=== PATIENT | female | born 1945 | race Caucasian/White ===

== ENCOUNTER 2017-07-27 21:16 | Inpatient (IN) ==
[2017-07-27] MEDS ORDERED: 0.9 % Sodium Chloride 1,000 ML IVC ONE (21:25)
--- NOTE | 2017-07-27 21:28 | Emergency Department Note ---
Disposition Clinical Impression: Delirium due to general medical condition, Hypernatremia, Hyperchloremia Acute renal failure Qualifiers: Acute renal failure type: unspecified Qualified Code(s): N17.9 - Acute kidney failure, unspecified Disposition: Admitted As Inpatient Condition: Fair Referrals: NONE,PCP [Primary Care Provider] - Forms: ED Satisfaction Letter Altered Mental Status HPI - General Chief Complaint: ED Altered Mental Status Stated Complaint: altered mental status Time Seen by Provider: 07/27/17 21:22 Source: EMS, other (senior care) Mode of arrival: EMS Limitations: altered mental status Nursing Notes Reviewed: Yes Vital Signs Reviewed: Yes - History of Present Illness HPI Narrative: Patient is reported to have had decreased activity with. The confusion since Saturday, 6 days ago. She did have an episode of a blood sugar down to 49 on Saturday but subsequently has been doing well. Blood sugar was in the 200s prior to arrival today. She did have labs checked and was shown to have a leukocytosis. She has been placed on Levaquin but is unclear the source of infection that was being treated. Today she has been more confused and less responsive and has been brought in by EMS for evaluation. She is usually in the behavioral unit but able to ambulate and eat for herself. She is currently able to arise and looked about but is otherwise not following any specific command and certainly not being active. No history is obtainable from the patient and history from the [facility] is very limited. MD complaint: altered mental status, confusion, decreased responsiveness, weakness Onset (ago): day(s) (6) Timing confirmed by: caregiver Pain Severity: none Consistency of Symptoms: waxing and waning, getting worse Treatments prior to arrival: other (Levaquin) - Related Data Home Medications Medication Instructions Recorded Confirmed Aspirin [Lo-Dose Aspirin EC] 81 mg PO QAM 07/27/17 07/27/17 Benztropine Mesylate 0.5 mg PO BID 07/27/17 07/27/17 Insulin Glargine,Hum.rec.anlog 30 unit SQ QAM 07/27/17 07/27/17 [Basaglar Kwikpen U-100] Insulin Glargine,Hum.rec.anlog 34 unit SQ HS 07/27/17 07/27/17 [Basaglar Kwikpen U-100] Levofloxacin 500 MG/100 ML 500 mg IV QAM 07/27/17 07/27/17 [Levaquin Premix 500mg/100mL] clonazePAM [Clonazepam] 0.5 mg PO BID 07/27/17 07/27/17 clonazePAM [Klonopin] 1 mg PO HS 07/27/17 07/27/17 Allergies Allergy/AdvReac Type Severity Reaction Status Date / Time bee venom protein (honey bee) Allergy See Verified 07/27/17 21:51 Comments hydroxyzine Allergy See Verified 07/27/17 21:51 Comments meperidine Allergy See Verified 07/27/17 21:51 Comments propoxyphene Allergy See Verified 07/27/17 21:51 Comments ziprasidone Allergy See Verified 07/27/17 21:51 Comments All systems ED: reviewed and negative except as stated. Past Medical History - Past Medical History Medical history: Reports: arthritis, dementia, diabetes, thyroid disease, other (Parkinson's) Psychiatric history: Reports: anxiety, schizophrenia - Social History Smoking Status: Unknown if ever smoked Alcohol use: Reports: none Drug use: Reports: none Physical Exam - General Limitations: altered mental status General appearance: in no apparent distress, lethargic - Head Head exam: atraumatic, normocephalic, normal inspection - Eye Eye exam: Present: normal appearance, PERRL, EOMI. Absent: conjunctival injection - ENT ENT exam: normal exam, normal oropharynx, mucous membranes dry - Neck Neck exam: Present: normal inspection, full ROM, trachea midline. Absent: meningismus, lymphadenopathy - Chest Chest inspection: Present: normal inspection, symmetric chest wall rise - Respiratory Respiratory exam: Present: normal lung sounds bilaterally. Absent: respiratory distress, wheezes, prolonged expiratory phase - Cardiovascular Cardiovascular exam: Present: regular rate, normal rhythm, normal heart sounds - Abdominal Exam Abdominal exam: Present: soft, Non-Tender, normal bowel sounds. Absent: tenderness, distention, guarding, rebound, rigidity - Extremities Exam Extremities exam: Present: normal inspection, full ROM, normal capillary refill. Absent: tenderness, pedal edema - Expanded Lower Extremity Exam Neurovascular/Tendon exam: Present: normal capillary refill Gait: not tested/not observed - Neurological Exam Neurological exam: Absent: alert, oriented X3 - Psychiatric Psychiatric exam: Present: flat affect - Skin Skin exam: Present: warm, dry, intact, normal color. Absent: rash, diaphoresis , pallor Course Course Narrative: 2299: Care is discussed with Dr. Dawson. She will be continued on her Levaquin and hydration. She has acute renal insufficiency with dehydration with hypernatremia and hyperchloremia. He will reassess in the morning as to the need for other coverage or treatment. Verbal orders are obtained for her admission. Vital Signs Temperature 99.5 F 07/27/17 21:21 Pulse Rate 123 07/27/17 21:21 Respiratory Rate 27 07/27/17 21:21 Blood Pressure 149/81 07/27/17 21:21 O2 Sat by Pulse Oximetry 95 07/27/17 21:21 Temperature 99.5 F 07/27/17 21:21 Pulse Rate 111 07/27/17 22:47 Respiratory Rate 28 07/27/17 22:47 Blood Pressure 152/97 07/27/17 22:47 O2 Sat by Pulse Oximetry 96 07/27/17 22:47 Oxygen Delivery Oxygen Delivery Nasal Cannula Altered Mental Status - Differential Diagnosis Likely: altered mental status, delirium, hypoglycemia, hyponatremia, sepsis - Medical Records Medical records reviewed: Yes I reviewed the patient's medical records. - Lab Data Lab results reviewed: Yes I reviewed the patient's lab results. Result diagrams: 07/27/17 21:47 07/27/17 21:47 Lab Results 07/27/17 07/27/17 07/27/17 Range/Units 21:41 21:47 21:47 WBC 20.0 H (4.3-11.1) K/mcL RBC 5.49 H (3.82-4.97) M/mcL Hgb 16.3 H (11.5-15.4) g/dL Hct 52.8 H (35.3-44.9) % MCV 96.2 (83.0-100.0) fL MCH 29.7 (28.0-33.3) pg MCHC 30.9 L (31.6-35.5) g/dL RDW 14.7 H (11.5-14.5) % Plt Count 280 (140-400) K/mcL MPV 10.5 (9.4-12.4) fL Immature Gran % 0.6 (0-4) % Seg Neutrophils % 85.3 % Lymphocytes % 9.1 % Monocytes % 4.7 % Eosinophils % 0.1 % Basophils % 0.2 % Neutrophils # 17.1 H (1.6-8.9) K/mcL Lymphocytes # 1.8 (0.6-4.6) K/mcL Monocytes # 0.9 (0.0-1.3) K/mcL Eosinophils # 0.0 (0.0-0.6) K/mcL Basophils # 0.0 (0.0-0.2) K/mcL PT 16.2 H (9.4-12.1) Seconds INR 1.5 APTT 29.5 (26.0-36.0) Seconds Sodium (136-145) mEq/L Potassium (3.5-4.5) mEq/L Chloride (98-109) mEq/L Carbon Dioxide (19-29) mEq/L BUN (7-20) mg/dL Creatinine (0.57-1.11) mg/dL Est GFR ( Amer) (> 60) Est GFR (Non-Af Amer) (> 60) BUN/Creatinine Ratio (6-26) Glucose (70-99) mg/dL Calculated Osmolality (280-300) Lactic Acid (0.5-2.2) mmol/L Calcium (8.6-10.8) mg/dL Total Bilirubin (0.2-1.2) mg/dL Direct Bilirubin (0.0-0.5) mg/dL Indirect Bilirubin (0.0-1.2) mg/dL AST (5-34) Units/L ALT (0-55) Units/L Alkaline Phosphatase (38-126) Units/L Troponin I (0-0.03) ng/mL Serum Total Protein (6.0-8.3) g/dL Albumin (3.5-5.0) g/dL Globulin (2.4-3.5) g/dL Albumin/Globulin Ratio (1.1-2.2) Urine Color Dark Yellow (Yellow) Urine Clarity Cloudy A (Clear) Urine pH 5.5 (5.0-8.0) pH Units Ur Specific [place] 1.020 (1.010-1.025) Urine Protein 100 H (Neg-Trace) mg/dL Urine Glucose (UA) Normal (Normal) mg/dL Urine Ketones Trace H (Negative) mg/dL Urine Blood Negative (Negative) Urine Nitrite Negative (Negative) Urine Bilirubin Moderate H (Negative) Urine Urobilinogen Normal (Normal) mg/dL Ur Leukocyte Esterase Negative (Negative) Urine Microscopic RBC 3-5 H (0-3) per hpf Urine Microscopic WBC 0-3 (0-3) per hpf Ur Squamous Epith Cells Many H (None-Few) per lpf Urine Bacteria Many H (None-Few) per hpf Hyaline Casts Many H (None-Few) per lpf Urine Mucus Few (Few) Ur Culture Indicated? NO (NO) [place] (0.6-1.2) mEq/L 07/27/17 07/27/17 07/27/17 Range/Units 21:47 21:47 21:47 WBC (4.3-11.1) K/mcL RBC (3.82-4.97) M/mcL Hgb (11.5-15.4) g/dL Hct (35.3-44.9) % MCV (83.0-100.0) fL MCH (28.0-33.3) pg MCHC (31.6-35.5) g/dL RDW (11.5-14.5) % Plt Count (140-400) K/mcL MPV (9.4-12.4) fL Immature Gran % (0-4) % Seg Neutrophils % % Lymphocytes % % Monocytes % % Eosinophils % % Basophils % % Neutrophils # (1.6-8.9) K/mcL Lymphocytes # (0.6-4.6) K/mcL Monocytes # (0.0-1.3) K/mcL Eosinophils # (0.0-0.6) K/mcL Basophils # (0.0-0.2) K/mcL PT (9.4-12.1) Seconds INR APTT (26.0-36.0) Seconds Sodium 156 H (136-145) mEq/L Potassium 4.3 (3.5-4.5) mEq/L Chloride 120 H (98-109) mEq/L Carbon Dioxide 20 (19-29) mEq/L BUN 56 H D (7-20) mg/dL Creatinine 1.97 H D (0.57-1.11) mg/dL Est GFR ( Amer) 30 L (> 60) Est GFR (Non-Af Amer) 25 L (> 60) BUN/Creatinine Ratio 28 H (6-26) Glucose 395 H (70-99) mg/dL Calculated Osmolality 354 H (280-300) Lactic Acid 1.7 (0.5-2.2) mmol/L Calcium 10.5 (8.6-10.8) mg/dL Total Bilirubin 1.4 H (0.2-1.2) mg/dL Direct Bilirubin 0.5 (0.0-0.5) mg/dL Indirect Bilirubin 0.9 (0.0-1.2) mg/dL AST 25 (5-34) Units/L ALT 26 (0-55) Units/L Alkaline Phosphatase 107 (38-126) Units/L Troponin I 0.02 (0-0.03) ng/mL Serum Total Protein 8.3 (6.0-8.3) g/dL Albumin 3.8 (3.5-5.0) g/dL Globulin 4.5 H (2.4-3.5) g/dL Albumin/Globulin Ratio 0.8 L (1.1-2.2) Urine Color (Yellow) Urine Clarity (Clear) Urine pH (5.0-8.0) pH Units Ur Specific [place] (1.010-1.025) Urine Protein (Neg-Trace) mg/dL Urine Glucose (UA) (Normal) mg/dL Urine Ketones (Negative) mg/dL Urine Blood (Negative) Urine Nitrite (Negative) Urine Bilirubin (Negative) Urine Urobilinogen (Normal) mg/dL Ur Leukocyte Esterase (Negative) Urine Microscopic RBC (0-3) per hpf Urine Microscopic WBC (0-3) per hpf Ur Squamous Epith Cells (None-Few) per lpf Urine Bacteria (None-Few) per hpf Hyaline Casts (None-Few) per lpf Urine Mucus (Few) Ur Culture Indicated? (NO) [place] (0.6-1.2) mEq/L // Range/Units 22:10 WBC (4.3-11.1) K/mcL RBC (3.82-4.97) M/mcL Hgb (11.5-15.4) g/dL Hct (35.3-44.9) % MCV (83.0-100.0) fL MCH (28.0-33.3) pg MCHC (31.6-35.5) g/dL RDW (11.5-14.5) % Plt Count (140-400) K/mcL MPV (9.4-12.4) fL Immature Gran % (0-4) % Seg Neutrophils % % Lymphocytes % % Monocytes % % Eosinophils % % Basophils % % Neutrophils # (1.6-8.9) K/mcL Lymphocytes # (0.6-4.6) K/mcL Monocytes # (0.0-1.3) K/mcL Eosinophils # (0.0-0.6) K/mcL Basophils # (0.0-0.2) K/mcL PT (9.4-12.1) Seconds INR APTT (26.0-36.0) Seconds Sodium (136-145) mEq/L Potassium (3.5-4.5) mEq/L Chloride (98-109) mEq/L Carbon Dioxide (19-29) mEq/L BUN (7-20) mg/dL Creatinine (0.57-1.11) mg/dL Est GFR ( Amer) (> 60) Est GFR (Non-Af Amer) (> 60) BUN/Creatinine Ratio (6-26) Glucose (70-99) mg/dL Calculated Osmolality (280-300) Lactic Acid (0.5-2.2) mmol/L Calcium (8.6-10.8) mg/dL Total Bilirubin (0.2-1.2) mg/dL Direct Bilirubin (0.0-0.5) mg/dL Indirect Bilirubin (0.0-1.2) mg/dL AST (5-34) Units/L ALT (0-55) Units/L Alkaline Phosphatase (38-126) Units/L Troponin I (0-0.03) ng/mL Serum Total Protein (6.0-8.3) g/dL Albumin (3.5-5.0) g/dL Globulin (2.4-3.5) g/dL Albumin/Globulin Ratio (1.1-2.2) Urine Color (Yellow) Urine Clarity (Clear) Urine pH (5.0-8.0) pH Units Ur Specific [place] (1.010-1.025) Urine Protein (Neg-Trace) mg/dL Urine Glucose (UA) (Normal) mg/dL Urine Ketones (Negative) mg/dL Urine Blood (Negative) Urine Nitrite (Negative) Urine Bilirubin (Negative) Urine Urobilinogen (Normal) mg/dL Ur Leukocyte Esterase (Negative) Urine Microscopic RBC (0-3) per hpf Urine Microscopic WBC (0-3) per hpf Ur Squamous Epith Cells (None-Few) per lpf Urine Bacteria (None-Few) per hpf Hyaline Casts (None-Few) per lpf Urine Mucus (Few) Ur Culture Indicated? (NO) [place] 1.1 (0.6-1.2) mEq/L - Radiology Data Radiology results reviewed: Yes I reviewed the patient's radiology results. Single view chest x-ray is performed. This does not demonstrate evidence for infiltrate, effusion, pneumothorax, foreign body or heart failure. The cardiac silhouette is normal. I do not see abnormality to the osseous structures of the chest. This is on my interpretation. CT head is performed. This is reviewed on bone and soft tissue windows. There is no evidence for acute intracranial bleed, shift, mass or edema. Mastoids and sinuses appear normal. There is no fracture evident. This is on my interpretation. Impressions Chest X-Ray 07/27/17 21:25 IMPRESSION: No acute cardiopulmonary disease. D/ / Alf Rangel MD / Alf Rangel MD Interpreting Provider: Alf Rangel MD Head CT 07/27/17 21:25 IMPRESSION: No acute intracranial abnormality. D/ / Alf Rangel MD / Alf Rangel MD Interpreting Provider: Alf Rangel MD - EKG Data EKG attestation: Yes I reviewed and interpreted this EKG. EKG shows normal: sinus rhythm, axis, intervals, QRS complexes, ST-T waves Rate: tachycardia Interpretation: no acute changes, nonspecific ST-T wave changes TPA Checklist - LKW: 3-4.5 hrs Add. Warnings/Precautions Patient/family understanding: The patient/family members have been counseled and understood the risk, benefit , and alternatives of treatment. Critical Care Time Critical Care Time: Yes Total Critical Care Time: 60 Attestation: As this patient did present with signs and symptoms of potential life- threatening illness requiring my urgent intervention, total critical care time in this patient's care has been 60 minutes, not withstanding separately reportable procedures.
[2017-07-27 21:42] LABS: Bilirubin,Urine Moderate (Negative); Blood,Urine Negative (Negative); Clarity,Urine Cloudy (Clear); Color,Urine Dark Yellow (Yellow); Glucose,Urine (UA) Normal (Normal); Ketones,Urine Trace mg/dL (Negative); Leukocyte Esterase,Urine Negative (Negative); Nitrite,Urine Negative (Negative); PH,Urine 5.5 pH Units (5.0-8.0); Protein,Urine 100 mg/dL (Neg-Trace); Urobilinogen,Urine Normal (Normal)
[2017-07-27 21:50] LABS: Bacteria,Urine Many per hpf (None-Few); Hyaline Casts,Urine Many per lpf (None-Few); Squamous Epithelial Cell,Urine Many per lpf (None-Few)
[2017-07-27 21:54] LABS: Basophils % 0.2 %; Eosinophils % 0.1 %; Hematocrit 52.8 % (35.3-44.9); Hemoglobin 16.3 g/dL (11.5-15.4); Immature Granulocytes % 0.6 % (0-4); Lymphocytes # 1.8 K/mcL (0.6-4.6); Lymphocytes % 9.1 %; Mean Corpuscular HGB Conc 30.9 g/dL (31.6-35.5); Mean Corpuscular Hemoglobin 29.7 pg (28.0-33.3); Mean Corpuscular Volume 96.2 fL (83.0-100.0); Mean Platelet Volume 10.5 fL (9.4-12.4); Monocytes # 0.9 K/mcL (0.0-1.3); Monocytes % 4.7 %; Platelet Count 280 K/mcL (140-400); Red Blood Count 5.49 M/mcL (3.82-4.97); Red Cell Distribution Width 14.7 % (11.5-14.5); Segmented Neutrophils % 85.3 %
[2017-07-27 21:57] LABS: Neutrophils # 17.1 K/mcL (1.6-8.9)
[2017-07-27 21:59] LABS: INR 1.5; Prothrombin Time 16.2 Seconds (9.4-12.1)
[2017-07-27 22:02] LABS: Activated Partial Thrombo Time 29.5 Seconds (26.0-36.0)
[2017-07-27 22:11] LABS: WBC,Urine 0-3 per hpf (0-3)
[2017-07-27 22:13] LABS: Albumin 3.8 g/dL (3.5-5.0); Albumin/Globulin Ratio 0.8 (1.1-2.2); Bilirubin,Direct 0.5 mg/dL (0.0-0.5); Bilirubin,Indirect 0.9 mg/dL (0.0-1.2); Bilirubin,Total 1.4 mg/dL (0.2-1.2); Calcium 10.5 mg/dL (8.6-10.8); Globulin 4.5 g/dL (2.4-3.5); Potassium 4.3 mEq/L (3.5-4.5); Total Protein 8.3 g/dL (6.0-8.3)
[2017-07-27 22:13] LABS: Mucus,Urine Few (Few)
[2017-07-27] MEDS ORDERED: 0.9 % Sodium Chloride 1,000 ML IVC SCH (23:30)
[2017-07-28] MEDS ORDERED: D5% in Water 1,000 ML IVC PRN (00:26)
[2017-07-28] MEDS ORDERED: *HR* Dextrose 50 % in Water (Syg) 50 ML SYRINGE IVP PRN (00:26)
[2017-07-28] MEDS ORDERED: Ondansetron 4 MG/2 ML VIAL IVP PRN (00:26)
[2017-07-28] MEDS ORDERED: Albuterol 2.5 MG/3 ML NEBULIZER IH PRN (00:26)
[2017-07-28] MEDS ORDERED: Dextrose Gel 15 GM PO PRN ×2 (00:26)
[2017-07-28] MEDS ORDERED: Naloxone 0.4 MG/ML INJ IVP PRN (00:26)
[2017-07-28] MEDS: 0.9 % Sodium Chloride 1,000 ML IVC SCH ×2 (01:06→10:15)
[2017-07-28] MEDS: Ipratropium/Albuterol Neb 3 ML IH SCH ×2 (04:25→10:35)
[2017-07-28 05:23] LABS: Calcium 9.3 mg/dL (8.6-10.8); Potassium 4.2 mEq/L (3.5-4.5)
[2017-07-28] MEDS: *HR* Enoxaparin 40 MG/0.4 ML SYRINGE SQ SCH (06:10)
[2017-07-28] MEDS ORDERED: NON-FORMULARY MEDICATION 1 EACH EACH (Insulin Glargine,Hum.Rec.Anlog [Basaglar Kwikpen U-1 SQ SCH ×2 (09:00→21:00)
[2017-07-28] MEDS ORDERED: Azithromycin 500 MG in D5% in Water 250 ML IVPB ONE (13:04)
--- NOTE | 2017-07-28 13:09 | Internal Med History&Physical ---
Date of Encounter: 07/28/17 Time of Encounter: 12:30 Assessment and Plan (1) Acute renal failure Current visit: Yes Status: Acute Suspect due to dehydration from decreased oral intake, Lasix use, and possible contribution from lithium use. We will hold lithium and Lasix and give IV fluids. Recheck labs in a.m. Qualifiers: Acute renal failure type: unspecified Qualified Code(s): N17.9 - Acute kidney failure, unspecified (2) Neutrophilic leukocytosis Current visit: Yes Status: Acute She was on Levaquin for several days at the senior living prior to hospitalization. The etiology is not obvious but will give Rocephin and Zithromax today and recheck labs in a.m. (3) DM type 2 (diabetes mellitus, type 2) Current visit: Yes Status: Acute GOOD globin A1c was 7.4% on 07/15/2017. Continue Levemir, glimepiride, and do Accu-Cheks with SSI. Qualifiers: Diabetes mellitus complication status: with unspecified complications Diabetes mellitus jail insulin use: with watermaster use Qualified Code(s) : E11.8 - Type 2 diabetes mellitus with unspecified complications; Z79.4 - senior living (current) use of insulin; Z79.4 - senior living (current) use of insulin; Z79.4 - watermaster (current) use of insulin; Z79.4 - watermaster (current) use of insulin (4) Hypernatremia Current visit: Yes Status: Acute Suspect secondary to dehydration. Will recheck labs in a.m. Internal Medicine - H&P: HPI Chief complaint: Lethargy and confusion Admitted From: Emergency Dept Plans for Post Hospital Care: Home History of present illness: Ms. Lora is a 71 year old female who was brought to emergency room after staff reported she had decreasing oral intake with lethargy and confusion over the preceding days. She was evaluated and found to have hypernatremia and acute renal insufficiency with likely hemoconcentration. There was leukocytosis with left shift. She was admitted to [facility] floor for ongoing care needs. She could not supply any additional history. Past Med Surg Social Fam HX - Past Medical History Medical history: arthritis, cardiomyopathy, CHF, dementia, diabetes, thyroid disease, other Psychiatric history: anxiety, schizophrenia - Social History Smoking Status: Unknown if ever smoked Alcohol use: none Drug use: none Internal Medicine - H&P: Meds Albuterol Sulfate [Proventil Hfa] 2 puff IH Q6H PRN 07/27/17 [History] Aspirin [Lo-Dose Aspirin EC] 81 mg PO QAM 07/27/17 [History] Benztropine Mesylate 0.5 mg PO BID 07/27/17 [History] Benztropine [Cogentin] 0.5 mg PO BID 07/27/17 [History] Cholecalciferol (Vitamin D3) [Vitamin D] 50,000 unit PO DAILY 07/27/17 [History] Docusate [Colace] 100 mg PO BID 07/27/17 [History] Furosemide [Lasix] 40 mg PO DAILY 07/27/17 [History] Glimepiride [Amaryl] 4 mg PO DAILY 07/27/17 [History] Insulin Glargine,Hum.rec.anlog [Basaglar Kwikpen U-100] 30 unit SQ QAM 07/27/17 [History] Insulin Glargine,Hum.rec.anlog [Basaglar Kwikpen U-100] 34 unit SQ HS 07/27/17 [ History] Insulin LISPRO [HumaLOG] 0 units SQ HS 07/27/17 [History] Insulin LISPRO [HumaLOG] 0 units SQ TIDWM 07/27/17 [History] Levofloxacin 500 MG/100 ML [Levaquin Premix 500mg/100mL] 500 mg IV QAM 07/27/17 [History] Levothyroxine 1 tab PO QAM 07/27/17 [History] [place] Carbonate 450 mg PO BID 07/27/17 [History] Losartan [Cozaar] 12.5 mg PO DAILY 07/27/17 [History] Melatonin 10 mg PO HS 07/27/17 [History] OLANZapine [Zyprexa] 10 mg PO BID 07/27/17 [History] Ondansetron HCl [Zofran] 4 mg PO BID PRN 07/27/17 [History] Potassium Chloride [K-Tab ER] 20 meq PO QAM 07/27/17 [History] Pravastatin Sodium [Pravachol] 20 mg PO HS 07/27/17 [History] Rivastigmine 1 each TD QAM 07/27/17 [History] Sertraline [Zoloft] 50 mg PO DAILY 07/27/17 [History] Zolpidem [Ambien] 5 mg PO HS 07/27/17 [History] clonazePAM [Clonazepam] 0.5 mg PO BID 07/27/17 [History] clonazePAM [Klonopin] 1 mg PO HS 07/27/17 [History] metFORMIN [Glucophage] 500 mg PO BIDWM 07/27/17 [History] traZODone [TraZODone] 50 mg PO HS PRN 07/27/17 [History] 3 Allergy/AdvReac Type Severity Reaction Status Date / Time Penicillins Allergy Unknown Unresponsiv Verified 07/28/17 06:42 e bee venom protein (honey bee) Allergy See Verified 07/27/17 21:51 Comments hydroxyzine Allergy See Verified 07/27/17 21:51 Comments meperidine Allergy See Verified 07/27/17 21:51 Comments propoxyphene Allergy See Verified 07/27/17 21:51 Comments ziprasidone Allergy See Verified 07/27/17 21:51 Comments All Systems PM: A 10-system review of systems was performed and is negative for pertinent findings except as documented above in the HPI. Review of systems: Review of systems is obtained from the patient's son since the patient is nonverbal. Gen.: The son estimates her weight has decreased approximately 15 pounds in the past month Cardiovascular: She has history of CHF but no known hypertension IN DVT or pulmonary embolus Respiratory: She smoked from approximately age [age] up to 1 pack per day. She has been diagnosed with emphysema but does not wear oxygen at the senior living GI: She has had cholecystectomy. There is no known disorder of liver or exocrine pancreas : No previous known hematuria dysuria or kidney stones Neurologic: She has been diagnosed with dementia. There is no history of large distribution strokes or seizures. Endocrine: She was diagnosed with DM 2 approximately 2006. She has hyperlipidemia. She had normal TSH on 08/26/2016. Her son reports she has history of possible "thyroid problems" but he does not know details Hematology/oncology: She had skin cancer removed from her nose in the past. There is no history of internal malignancies anemia or other blood disorders Psychiatric: She has history of bipolar disorder and dementia. [place] skeletal: There is no history of DJD gout or other bone joint or muscle disorders. - Constitutional Vitals: Temp Pulse Resp BP Pulse Ox 99.6 F 102 20 150/83 95 07/28/17 10:27 07/28/17 10:27 07/28/17 10:27 07/28/17 10:27 07/28/17 10:27 Exam: Gen.: She is a well-developed well-nourished female lying in bed who appears in no acute distress. HEENT: Head is atraumatic and normal cephalic. Eyes: EOMI. There is no scleral icterus. Mouth: Mucosa is moist. Neck: There is no thyromegaly or adenopathy noted. Heart: Regular without murmurs gallops or ectopics Lungs: No wheezes or crackles are heard. Abdomen: There is a well-healed large transverse scar in the upper abdominal area. The abdomen is nontender to palpation Extremities: There is no cyanosis edema or clubbing noted. Dorsalis pedis and posterior tibial pulses are trace to 1+ palpable bilaterally. Neurologic: Mental status: She follows a few commands but is nonverbal. Cranial nerves: Smile is symmetric. Forehead wrinkles bilaterally. Tongue does not protrude. EOMI. Motor: She does not follow commands to do outstretched arm maneuver. No further neurologic testing is attempted. Skin: Warm and dry: Internal Med - H&P Results - Labs CBC & Chem 7: 07/27/17 21:47 07/28/17 04:54 Labs: BMP 07/28/17 04:54 Sodium 159 H Potassium 4.2 Chloride 126 H Carbon Dioxide 21 BUN 51 H Creatinine 1.69 H Glucose 362 H Calcium 9.3
[2017-07-28] MEDS: Insulin LISPRO 300 UNITS/3 ML VIAL SQ SCH ×2 (14:00→16:11)
[2017-07-28] MEDS: *HR* Glimepiride 2 MG TABLET PO SCH (14:00)
[2017-07-28] MEDS: Lithium Carbonate ER 450 MG TABLET.ER PO SCH ×2 (14:01→22:07)
[2017-07-28] MEDS: Aspirin Enteric Coated 81 MG Tablet PO SCH (14:01)
[2017-07-28] MEDS: Cholecalciferol (D-3) 1,000 UNIT TABLET PO SCH (14:02)
[2017-07-28] MEDS: OLANZapine 5 MG TAB.RAPDIS PO SCH ×2 (14:02→22:06)
[2017-07-28] MEDS: clonazePAM 0.5 MG TABLET PO SCH ×2 (14:02→22:06)
[2017-07-28] MEDS: Insulin DETEMIR 100 UNIT/ML X5UNITS SQ SCH ×2 (14:02→22:05)
[2017-07-28] MEDS: Rivastigmine Patch 9.5 MG PATCH.TD24 TP SCH (15:20)
[2017-07-28] MEDS ORDERED: clonazePAM 0.5 MG TABLET PO SCH (21:00)
[2017-07-28] MEDS: Melatonin 3 MG TABLET PO SCH (22:06)
[2017-07-29] MEDS: *HR* Enoxaparin 40 MG/0.4 ML SYRINGE SQ SCH (05:55)
[2017-07-29 07:39] LABS: Hemoglobin 13.5 g/dL (11.5-15.4); Immature Granulocytes % 0.3 % (0-4); Lymphocytes % 18.3 %; Mean Corpuscular HGB Conc 29.3 g/dL (31.6-35.5); Mean Corpuscular Hemoglobin 29.4 pg (28.0-33.3); Mean Corpuscular Volume 100.2 fL (83.0-100.0); Mean Platelet Volume 11.2 fL (9.4-12.4); Platelet Count 169 K/mcL (140-400); Red Blood Count 4.59 M/mcL (3.82-4.97); Red Cell Distribution Width 14.9 % (11.5-14.5); Segmented Neutrophils % 75.5 %
[2017-07-29 07:40] LABS: Basophils % 0.3 %; Eosinophils # 0.2 K/mcL (0.0-0.6); Eosinophils % 1.3 %; Lymphocytes # 2.2 K/mcL (0.6-4.6); Monocytes # 0.5 K/mcL (0.0-1.3); Monocytes % 4.3 %; Neutrophils # 8.9 K/mcL (1.6-8.9)
[2017-07-29] MEDS: Insulin LISPRO 300 UNITS/3 ML VIAL SQ SCH ×3 (08:33→16:50)
[2017-07-29] MEDS: *HR* Glimepiride 2 MG TABLET PO SCH (08:35)
[2017-07-29] MEDS: Aspirin Enteric Coated 81 MG Tablet PO SCH (08:35)
[2017-07-29] MEDS: Lithium Carbonate ER 450 MG TABLET.ER PO SCH (08:36)
[2017-07-29] MEDS: clonazePAM 0.5 MG TABLET PO SCH ×2 (08:36→20:54)
[2017-07-29] MEDS: Cholecalciferol (D-3) 1,000 UNIT TABLET PO SCH (08:36)
[2017-07-29] MEDS: OLANZapine 5 MG TAB.RAPDIS PO SCH ×2 (08:37→20:55)
[2017-07-29] MEDS: Rivastigmine Patch 9.5 MG PATCH.TD24 TP SCH (08:38)
[2017-07-29] MEDS: Insulin DETEMIR 100 UNIT/ML X5UNITS SQ SCH ×2 (09:32→20:55)
[2017-07-29 09:42] LABS: Calcium 9.4 mg/dL (8.6-10.8); Magnesium 2.6 mg/dL (1.6-2.6); Potassium 3.2 mEq/L (3.5-4.5)
--- NOTE | 2017-07-29 10:20 | Internal Med Progress Note ---
Date of Encounter: 07/29/17 Time of Encounter: 10:10 - Assessment and plan (1) Acute renal failure Current Visit: Yes Status: Acute Assessment and plan: July 29. Continues to improve. Remain off Lasix and continue IV fluids. Will taper her lithium Qualifiers: Acute renal failure type: unspecified Qualified Code(s): N17.9 - Acute kidney failure, unspecified (2) Neutrophilic leukocytosis Current Visit: Yes Status: Acute Assessment and plan: July 29 improved. Etiology not obvious. Continue Rocephin and Zithromax and monitor labs. (3) DM type 2 (diabetes mellitus, type 2) Current Visit: Yes Status: Acute Assessment and plan: July 29. Hemoglobin A1c was 7.4% on 07/15/2017. Continue Levemir, glimepiride, and Accu-Cheks with SSI. Qualifiers: Diabetes mellitus complication status: with unspecified complications Diabetes mellitus skilled nursing insulin use: with bed bug exterminator use Qualified Code(s) : E11.8 - Type 2 diabetes mellitus with unspecified complications; Z79.4 - assisted (current) use of insulin; Z79.4 - assisted (current) use of insulin; Z79.4 - truck terminal manager (current) use of insulin; Z79.4 - truck terminal manager (current) use of insulin (4) Hypernatremia Current Visit: Yes Status: Acute Assessment and plan: July 29. Unimproved despite azotemia lessening. Will change IV solution to D5 with KCl. - Subjective Interval history: July 29. No new problems have developed. She remains nonverbal. - Constitutional Vitals: Temp Pulse Resp BP Pulse Ox 97.2 F L 80 18 150/77 97 07/29/17 07:14 07/29/17 07:14 07/29/17 07:14 07/29/17 07:14 07/29/17 07:14 Exam: She is resting comfortably in bed and appears in no acute distress. Her eyes were open but she makes no attempt to speak. Heart is regular without murmurs gallops or ectopics. Lungs are clear anteriorly. Extremities show 0-trace edema bilaterally. I reviewed her medications and lab results. Internal Medicine: Result - Labs CBC & Chem 7: 07/29/17 06:43 07/29/17 06:43 Labs: Short CBC 07/29/17 Range/Units 06:43 WBC 11.8 H (4.3-11.1) K/mcL Hgb 13.5 D (11.5-15.4) g/dL Hct 46.0 H (35.3-44.9) % Plt Count 169 (140-400) K/mcL Neutrophils # 8.9 (1.6-8.9) K/mcL BMP 07/29/17 06:43 Sodium 161 H* Potassium 3.2 L D Chloride 131 H Carbon Dioxide 23 BUN 33 H D Creatinine 1.36 H Glucose 279 H Calcium 9.4 - ABG Interpretation ABG results: PT/INR, D-dimer PT 16.2 Seconds (9.4-12.1) H 07/27/17 21:47 Consult Discharge Plan - Plan Referrals: NONE,PCP [Primary Care Provider] - 1 week
[2017-07-29] MEDS ORDERED: Azithromycin 500 MG in D5% in Water 250 ML IVPB SCH (11:00)
[2017-07-29] MEDS: Potassium Chloride 20 MEQ in D5% in Water 1,000 ML IVC SCH (11:12)
[2017-07-29] MEDS: Azithromycin 500 MG in D5% in Water 250 ML IVPB SCH (16:49)
[2017-07-29] MEDS: Lactobacillus 1 EACH CAP.SPRINK PO SCH (20:54)
[2017-07-29] MEDS: Melatonin 3 MG TABLET PO SCH (20:55)
[2017-07-29] MEDS ORDERED: Lithium Carbonate ER 300 MG TABLET.ER PO SCH (21:00)
[2017-07-30] MEDS: Potassium Chloride 20 MEQ in D5% in Water 1,000 ML IVC SCH ×2 (01:15→16:41)
[2017-07-30] MEDS: *HR* Enoxaparin 40 MG/0.4 ML SYRINGE SQ SCH (05:47)
[2017-07-30 06:44] LABS: Basophils % 0.3 %; Eosinophils # 0.3 K/mcL (0.0-0.6); Eosinophils % 2.5 %; Hematocrit 42.2 % (35.3-44.9); Hemoglobin 12.5 g/dL (11.5-15.4); Immature Granulocytes % 0.4 % (0-4); Lymphocytes # 2.3 K/mcL (0.6-4.6); Lymphocytes % 20.7 %; Mean Corpuscular HGB Conc 29.6 g/dL (31.6-35.5); Mean Corpuscular Hemoglobin 29.6 pg (28.0-33.3); Mean Corpuscular Volume 99.8 fL (83.0-100.0); Mean Platelet Volume 10.9 fL (9.4-12.4); Monocytes # 0.5 K/mcL (0.0-1.3); Monocytes % 4.1 %; Neutrophils # 8.1 K/mcL (1.6-8.9); Platelet Count 143 K/mcL (140-400); Red Blood Count 4.23 M/mcL (3.82-4.97)
[2017-07-30 06:58] LABS: BUN/Creatinine Ratio 20 (6-26); Blood Urea Nitrogen 21 mg/dL (7-20); Calcium 9.4 mg/dL (8.6-10.8); Carbon Dioxide 25 mEq/L (19-29); Chloride 130 mEq/L (98-109); Glucose 108 mg/dL (70-99); Osmolality,Calculated 338 (280-300); Potassium 3.2 mEq/L (3.5-4.5); eGFR For African Americans > 60 (> 60); eGFR For Non-African Americans 53 (> 60)
[2017-07-30 07:07] LABS: Sodium 162 mEq/L (136-145)
[2017-07-30] MEDS: Insulin LISPRO 300 UNITS/3 ML VIAL SQ SCH ×3 (08:16→16:46)
[2017-07-30] MEDS: *HR* Glimepiride 2 MG TABLET PO SCH ×2 (08:17→10:52)
[2017-07-30] MEDS: Aspirin Enteric Coated 81 MG Tablet PO SCH (08:17)
[2017-07-30] MEDS: Lactobacillus 1 EACH CAP.SPRINK PO SCH ×2 (08:17→20:56)
[2017-07-30] MEDS: clonazePAM 0.5 MG TABLET PO SCH ×2 (08:18→20:56)
[2017-07-30] MEDS: Cholecalciferol (D-3) 1,000 UNIT TABLET PO SCH (08:18)
[2017-07-30] MEDS: OLANZapine 5 MG TAB.RAPDIS PO SCH ×2 (08:18→21:03)
[2017-07-30] MEDS: Rivastigmine Patch 9.5 MG PATCH.TD24 TP SCH (09:05)
[2017-07-30] MEDS: Insulin DETEMIR 100 UNIT/ML X5UNITS SQ SCH ×2 (09:05→21:06)
--- NOTE | 2017-07-30 09:45 | Internal Med Progress Note ---
Date of Encounter: 07/30/17 Time of Encounter: 09:35 - Assessment and plan (1) Acute renal failure Current Visit: Yes Status: Acute Assessment and plan: July 29. Continues to improve. Remain off Lasix and continue IV fluids. Will taper her lithium July 30. Significantly improved. Continue IV fluids and recheck labs. Qualifiers: Acute renal failure type: unspecified Qualified Code(s): N17.9 - Acute kidney failure, unspecified (2) Neutrophilic leukocytosis Current Visit: Yes Status: Acute Assessment and plan: July 29 improved. Etiology not obvious. Continue Rocephin and Zithromax and monitor labs. July 30. Continues to improve. Continue Rocephin and Zithromax with lactobacillus. (3) DM type 2 (diabetes mellitus, type 2) Current Visit: Yes Status: Acute Assessment and plan: July 29. Hemoglobin A1c was 7.4% on 07/15/2017. Continue Levemir, glimepiride, and Accu-Cheks with SSI. July 30. Blood sugars are improved. Continue Levemir, glyburide, and Accu- Cheks with SSI Qualifiers: Diabetes mellitus complication status: with unspecified complications Diabetes mellitus retirement insulin use: with watermelon inspector use Qualified Code(s) : E11.8 - Type 2 diabetes mellitus with unspecified complications; Z79.4 - residential (current) use of insulin; Z79.4 - watermelon inspector (current) use of insulin; Z79.4 - residential (current) use of insulin; Z79.4 - watermelon inspector (current) use of insulin (4) Hypernatremia Current Visit: Yes Status: Acute Assessment and plan: July 29. Unimproved despite azotemia lessening. Will change IV solution to D5 with KCl. July 30. Essentially unchanged. Will continue IV fluids and with hold lithium to avoid nephrogenic diabetes insipidus. - Subjective Interval history: July 29. No new problems have developed. She remains nonverbal. July 30. No new problems have developed. - Constitutional Vitals: Temp Pulse Resp BP Pulse Ox 98.7 F 62 18 148/69 95 07/30/17 06:18 07/30/17 06:18 07/30/17 06:18 07/30/17 06:18 07/30/17 06:18 Exam: She is more awake but still lethargic. Her speech is incoherent mumble. Heart is regular without murmurs gallops or ectopics. Lungs are clear anteriorly. Extremities show no edema. I reviewed her medications and lab results. Internal Medicine: Result - Labs CBC & Chem 7: 07/30/17 05:47 07/30/17 05:47 Labs: Short CBC 07/30/17 Range/Units 05:47 WBC 11.2 H (4.3-11.1) K/mcL Hgb 12.5 (11.5-15.4) g/dL Hct 42.2 (35.3-44.9) % Plt Count 143 (140-400) K/mcL Neutrophils # 8.1 (1.6-8.9) K/mcL BMP 07/29/17 07/30/17 06:43 05:47 Sodium 161 H* 162 H* Potassium 3.2 L D 3.2 L Chloride 131 H 130 H Carbon Dioxide 23 25 BUN 33 H D 21 H D Creatinine 1.36 H 1.03 Glucose 279 H 108 H Calcium 9.4 9.4 - ABG Interpretation ABG results: PT/INR, D-dimer PT 16.2 Seconds (9.4-12.1) H 07/27/17 21:47 Consult Discharge Plan - Plan Referrals: NONE,PCP [Primary Care Provider] - 1 week
--- NOTE | 2017-07-30 09:51 | Electrocardiograph Report ---
[address] [place] [address] Test Date: 2017-07-27 Pat Name: Genesis Lora Department: [id number] Room: [facility] Gender: F Gas Desulfurizer: [id number] : 1945 Requested By: Lawrence Lebron Order Number: [id number] Reading MD: Carlos Martinez DO Measurements Intervals [place] Rate: 122 P: -18 IA: 149 QRS: -29 QRSD: 82 T: 82 QT: 415 QTc: 488 Interpretive Statements SINUS TACHYCARDIA INFERIOR MYOCARDIAL INFARCTION, OF INDETERMINATE AGE POOR R WAVE PROGRESSION LEFTWARD AXIS LATERAL ST-T CHANGES POSSIBLY DUE TO ISCHEMIA Electronically Signed On 07-30-2017 9:49:43 EST by Carlos Martinez DO
[2017-07-30] MEDS: Azithromycin 500 MG in D5% in Water 250 ML IVPB SCH (17:59)
[2017-07-30] MEDS: Melatonin 3 MG TABLET PO SCH (21:02)
[2017-07-31] MEDS: Potassium Chloride 20 MEQ in D5% in Water 1,000 ML IVC SCH ×3 (05:54→17:05)
[2017-07-31] MEDS: *HR* Enoxaparin 40 MG/0.4 ML SYRINGE SQ SCH (05:55)
[2017-07-31 06:24] LABS: Alanine Aminotransferase 36 Units/L (0-55); Albumin 2.8 g/dL (3.5-5.0); Albumin/Globulin Ratio 0.9 (1.1-2.2); Alkaline Phosphatase 103 Units/L (38-126); Aspartate Amino Transferase 37 Units/L (5-34); BUN/Creatinine Ratio 16 (6-26); Bilirubin,Total 0.9 mg/dL (0.2-1.2); Blood Urea Nitrogen 15 mg/dL (7-20); Carbon Dioxide 26 mEq/L (19-29); Chloride 126 mEq/L (98-109); Glucose 117 mg/dL (70-99); Osmolality,Calculated 326 (280-300); Potassium 3.1 mEq/L (3.5-4.5); Sodium 157 mEq/L (136-145); Total Protein 5.9 g/dL (6.0-8.3); eGFR For African Americans > 60 (> 60); eGFR For Non-African Americans > 60 (> 60)
[2017-07-31 06:25] LABS: Globulin 3.1 g/dL (2.4-3.5)
--- NOTE | 2017-07-31 09:30 | Internal Med Progress Note ---
Date of Encounter: 07/31/17 Time of Encounter: 09: - Assessment and plan (1) Acute renal failure Current Visit: Yes Status: Acute Assessment and plan: July 29. Continues to improve. Remain off Lasix and continue IV fluids. Will taper her lithium July 30. Significantly improved. Continue IV fluids and recheck labs. July 31. Azotemia now resolved. Continue IV fluids and recheck labs in a.m. Qualifiers: Acute renal failure type: unspecified Qualified Code(s): N17.9 - Acute kidney failure, unspecified (2) Neutrophilic leukocytosis Current Visit: Yes Status: Acute Assessment and plan: July 29 improved. Etiology not obvious. Continue Rocephin and Zithromax and monitor labs. July 30. Continues to improve. Continue Rocephin and Zithromax with lactobacillus. July 31. We will discontinue antibiotics and lactobacillus. (3) DM type 2 (diabetes mellitus, type 2) Current Visit: Yes Status: Acute Assessment and plan: July 29. Hemoglobin A1c was 7.4% on 07/15/2017. Continue Levemir, glimepiride, and Accu-Cheks with SSI. July 30. Blood sugars are improved. Continue Levemir, glyburide, and Accu- Cheks with SSI Qualifiers: Diabetes mellitus complication status: with unspecified complications Diabetes mellitus shelter insulin use: with truck terminal manager use Qualified Code(s) : E11.8 - Type 2 diabetes mellitus with unspecified complications; Z79.4 - detention (current) use of insulin; Z79.4 - detention (current) use of insulin; Z79.4 - detention (current) use of insulin; Z79.4 - detention (current) use of insulin (4) Hypernatremia Current Visit: Yes Status: Acute Assessment and plan: July 29. Unimproved despite azotemia lessening. Will change IV solution to D5 with KCl. July 30. Essentially unchanged. Will continue IV fluids and with hold lithium to avoid nephrogenic diabetes insipidus. July 31. Improved. Continue present management - Subjective Interval history: July 29. No new problems have developed. She remains nonverbal. July 30. No new problems have developed. July 31. No new problems have developed. - Constitutional Vitals: Temp Pulse Resp BP Pulse Ox 98.6 F 64 18 123/56 95 07/31/17 05:21 07/31/17 05:21 07/31/17 05:21 07/31/17 05:21 07/31/17 05:21 Exam: She is more awake than yesterday and attempts to speak but still has incoherent mumble. Affect seems bright and cheerful. I reviewed her medications and lab results. Internal Medicine: Result - Labs CBC & Chem 7: 07/30/17 05:47 07/31/17 05:40 Labs: BMP 07/31/17 05:40 Sodium 157 H Potassium 3.1 L Chloride 126 H Carbon Dioxide 26 BUN 15 Creatinine 0.91 Glucose 117 H Calcium 9.0 Liver Function 07/31/17 Range/Units 05:40 Total Bilirubin 0.9 (0.2-1.2) mg/dL AST 37 H (5-34) Units/L ALT 36 (0-55) Units/L Alkaline Phosphatase 103 (38-126) Units/L Albumin 2.8 L (3.5-5.0) g/dL - ABG Interpretation ABG results: PT/INR, D-dimer PT 16.2 Seconds (9.4-12.1) H 07/27/17 21:47 Consult Discharge Plan - Plan Referrals: NONE,PCP [Primary Care Provider] - 1 week
[2017-07-31] MEDS ORDERED: ALPRAZolam 0.25 MG TABLET PO PRN (09:32)
[2017-07-31] MEDS: Rivastigmine Patch 9.5 MG PATCH.TD24 TP SCH (09:55)
[2017-07-31] MEDS: Insulin DETEMIR 100 UNIT/ML X5UNITS SQ SCH ×2 (09:55→22:23)
[2017-07-31] MEDS: Insulin LISPRO 300 UNITS/3 ML VIAL SQ SCH ×3 (09:57→17:10)
[2017-07-31] MEDS: Aspirin Enteric Coated 81 MG Tablet PO SCH (09:57)
[2017-07-31] MEDS: *HR* Glimepiride 2 MG TABLET PO SCH (09:57)
[2017-07-31] MEDS: Cholecalciferol (D-3) 1,000 UNIT TABLET PO SCH (09:58)
[2017-07-31] MEDS: OLANZapine 5 MG TAB.RAPDIS PO SCH ×2 (09:58→22:25)
[2017-07-31] MEDS: Lactobacillus 1 EACH CAP.SPRINK PO SCH (09:59)
[2017-07-31] MEDS: clonazePAM 0.5 MG TABLET PO SCH (09:59)
[2017-07-31] MEDS: Azithromycin 500 MG in D5% in Water 250 ML IVPB SCH (17:06)
[2017-07-31] MEDS: Melatonin 3 MG TABLET PO SCH (22:24)
[2017-08-01] MEDS: Potassium Chloride 20 MEQ in D5% in Water 1,000 ML IVC SCH (05:07)
[2017-08-01 05:38] LABS: Basophils % 0.4 %; Eosinophils # 0.3 K/mcL (0.0-0.6); Eosinophils % 3.9 %; Hematocrit 38.5 % (35.3-44.9); Hemoglobin 11.8 g/dL (11.5-15.4); Immature Granulocytes % 0.5 % (0-4); Lymphocytes # 2.2 K/mcL (0.6-4.6); Lymphocytes % 27.7 %; Mean Corpuscular HGB Conc 30.6 g/dL (31.6-35.5); Mean Corpuscular Hemoglobin 29.6 pg (28.0-33.3); Mean Corpuscular Volume 96.7 fL (83.0-100.0); Mean Platelet Volume 11.3 fL (9.4-12.4); Monocytes # 0.4 K/mcL (0.0-1.3); Monocytes % 4.7 %; Neutrophils # 4.9 K/mcL (1.6-8.9); Platelet Count 126 K/mcL (140-400); Red Blood Count 3.98 M/mcL (3.82-4.97); Red Cell Distribution Width 14.5 % (11.5-14.5); Segmented Neutrophils % 62.8 %
[2017-08-01] MEDS: *HR* Enoxaparin 40 MG/0.4 ML SYRINGE SQ SCH (06:29)
[2017-08-01] MEDS: Insulin DETEMIR 100 UNIT/ML X5UNITS SQ SCH (09:56)
[2017-08-01] MEDS: Insulin LISPRO 300 UNITS/3 ML VIAL SQ SCH ×2 (10:00→11:46)
[2017-08-01] MEDS: Rivastigmine Patch 9.5 MG PATCH.TD24 TP SCH (10:14)
[2017-08-01] MEDS: *HR* Glimepiride 2 MG TABLET PO SCH (10:15)
[2017-08-01 10:20] LABS: BUN/Creatinine Ratio 11 (6-26); Blood Urea Nitrogen 9 mg/dL (7-20); Calcium 8.7 mg/dL (8.6-10.8); Carbon Dioxide 24 mEq/L (19-29); Chloride 120 mEq/L (98-109); Glucose 190 mg/dL (70-99); Osmolality,Calculated 316 (280-300); Potassium 3.1 mEq/L (3.5-4.5); Sodium 151 mEq/L (136-145); eGFR For African Americans > 60 (> 60); eGFR For Non-African Americans > 60 (> 60)
[2017-08-01] MEDS: Aspirin Enteric Coated 81 MG Tablet PO SCH (10:47)
[2017-08-01] MEDS: Cholecalciferol (D-3) 1,000 UNIT TABLET PO SCH (10:48)
[2017-08-01 11:29] VITALS: BP 144/65
--- NOTE | 2017-08-01 12:45 | Discharge Summary ---
Date of Encounter: 08/01/17 Time of Encounter: 11:40 - Discharge Diagnosis (1) Acute renal failure Priority: Primary Status: Resolved Qualifiers: Acute renal failure type: unspecified Qualified Code(s): N17.9 - Acute kidney failure, unspecified (2) Neutrophilic leukocytosis Priority: Secondary Status: Resolved (3) DM type 2 (diabetes mellitus, type 2) Priority: Secondary Status: Chronic Qualifiers: Diabetes mellitus complication status: with unspecified complications Diabetes mellitus buttermaker insulin use: with buttermaker use Qualified Code(s) : E11.8 - Type 2 diabetes mellitus with unspecified complications; Z79.4 - buttermaker (current) use of insulin; Z79.4 - buttermaker (current) use of insulin; Z79.4 - buttermaker (current) use of insulin; Z79.4 - care home (current) use of insulin (4) Hypernatremia Priority: Secondary Status: Acute (5) Hypokalemia Priority: Secondary Status: Acute - Discharge Medications Home Medications: Albuterol Sulfate [Proventil Hfa] 2 puff IH Q6H PRN 07/27/17 [History] Aspirin [Lo-Dose Aspirin EC] 81 mg PO QAM 07/27/17 [History] Cholecalciferol (Vitamin D3) [Vitamin D3] 50,000 unit PO DAILY 07/27/17 [History ] Docusate [Colace] 100 mg PO BID 07/27/17 [History] Insulin Glargine,Hum.rec.anlog [Basaglar Kwikpen U-100] 30 unit SQ QAM 07/27/17 [History] Insulin Glargine,Hum.rec.anlog [Basaglar Kwikpen U-100] 34 unit SQ HS 07/27/17 [ History] Insulin LISPRO [HumaLOG] 0 units SQ HS 07/27/17 [History] Insulin LISPRO [HumaLOG] 0 units SQ TIDWM 07/27/17 [History] Levothyroxine 1 tab PO QAM 07/27/17 [History] Melatonin 10 mg PO HS 07/27/17 [History] OLANZapine [Zyprexa] 10 mg PO BID 07/27/17 [History] Ondansetron HCl [Zofran] 4 mg PO BID PRN 07/27/17 [History] Pravastatin Sodium [Pravachol] 20 mg PO HS 07/27/17 [History] Rivastigmine 1 each TD QAM 07/27/17 [History] Sertraline [Zoloft] 50 mg PO DAILY 07/27/17 [History] metFORMIN [Glucophage] 500 mg PO BIDWM 07/27/17 [History] traZODone [TraZODone] 50 mg PO HS PRN 07/27/17 [History] Benztropine Mesylate 0.25 mg PO BID #0 08/01/17 [Rx] Benztropine [Cogentin] 0.25 mg PO BID #0 08/01/17 [Rx] Glimepiride [Amaryl] 2 mg PO DAILY #0 08/01/17 [Rx] Losartan [Cozaar] 25 mg PO DAILY #0 08/01/17 [Rx] Potassium Chloride [K-Tab ER] 20 meq PO QAM 7 Days #0 08/01/17 [Rx] clonazePAM [Klonopin] 0.5 mg PO HS #0 08/01/17 [Rx] Allergies/Adverse Reactions: 3 Allergy/AdvReac Type Severity Reaction Status Date / Time Penicillins Allergy Unknown Unresponsiv Verified 07/28/17 06:42 e bee venom protein (honey bee) Allergy See Verified 07/27/17 21:51 Comments hydroxyzine Allergy See Verified 07/27/17 21:51 Comments meperidine Allergy See Verified 07/27/17 21:51 Comments propoxyphene Allergy See Verified 07/27/17 21:51 Comments ziprasidone Allergy See Verified 07/27/17 21:51 Comments Date of admission: 07/28/17 13:29 Primary care physician: PCP NONE - Patient Status Disposition: Transfer SNF Condition: Fair Overall status at discharge: patient is progressing back to baseline - Discharge Instructions Follow Up With: NONE,PCP [Primary Care Provider] - 1 week - Diet and Activity Activity: resume usual activities as tolerated Diet: advance to your usual diet Hospital course: Ms. Lora is a 71 year old female who was brought to emergency room after staff reported she had decreasing oral intake with lethargy and confusion over the preceding days. She was evaluated and found to have hypernatremia and acute renal insufficiency with likely hemoconcentration. There was leukocytosis with left shift. She was admitted to [facility] floor for ongoing care needs. Initial orders were written by the emergency room physician. I saw her on July 28 and performed the history and physical. She was given IV fluids. Lasix and lithium were held. Her azotemia resolved with BUN and creatinine decreasing to 9 and 0.81 respectively by day of discharge. Her mental status improved and she was able to answer some questions by time of discharge. She was able to tolerate satisfactorily intake of food and fluid. Sodium improved to 151 with IV fluids and withholding Lasix and lithium. Potassium remained low at 3.1 and she will be given supplemental potassium at the residential with labs rechecked in approximately 1 week. - Time Spent with Patient Total time spent providing and/or coordinating discharge services: - Constitutional Vitals: Temp Pulse Resp BP Pulse Ox 98.2 F 53 18 144/65 97 08/01/17 11:23 08/01/17 11:23 08/01/17 11:23 08/01/17 11:23 08/01/17 11:23
--- NOTE | 2017-08-01 12:47 | Physician Discharge Referral ---
ExtendedCare Referral Info Transfer To: [facility] Provider in Charge: Samir Provider in Charge after Transfer: PCP (Wally) - Diagnosis (1) Acute renal failure Priority: Primary Status: Resolved (2) Neutrophilic leukocytosis Priority: Secondary Status: Resolved (3) DM type 2 (diabetes mellitus, type 2) Priority: Secondary Status: Chronic (4) Hypernatremia Priority: Secondary Status: Acute (5) Hypokalemia Priority: Secondary Status: Acute Prognosis: Fair Aware of Diagnosis: Patient, Family Aware of Prognosis: Patient, Family - Transfer Medications Home Medications: Albuterol Sulfate [Proventil Hfa] 2 puff IH Q6H PRN 07/27/17 [History] Aspirin [Lo-Dose Aspirin EC] 81 mg PO QAM 07/27/17 [History] Cholecalciferol (Vitamin D3) [Vitamin D3] 50,000 unit PO DAILY 07/27/17 [History ] Docusate [Colace] 100 mg PO BID 07/27/17 [History] Insulin Glargine,Hum.rec.anlog [Basaglar Kwikpen U-100] 30 unit SQ QAM 07/27/17 [History] Insulin Glargine,Hum.rec.anlog [Basaglar Kwikpen U-100] 34 unit SQ HS 07/27/17 [ History] Insulin LISPRO [HumaLOG] 0 units SQ HS 07/27/17 [History] Insulin LISPRO [HumaLOG] 0 units SQ TIDWM 07/27/17 [History] Levothyroxine 1 tab PO QAM 07/27/17 [History] Melatonin 10 mg PO HS 07/27/17 [History] OLANZapine [Zyprexa] 10 mg PO BID 07/27/17 [History] Ondansetron HCl [Zofran] 4 mg PO BID PRN 07/27/17 [History] Pravastatin Sodium [Pravachol] 20 mg PO HS 07/27/17 [History] Rivastigmine 1 each TD QAM 07/27/17 [History] Sertraline [Zoloft] 50 mg PO DAILY 07/27/17 [History] metFORMIN [Glucophage] 500 mg PO BIDWM 07/27/17 [History] traZODone [TraZODone] 50 mg PO HS PRN 07/27/17 [History] Benztropine Mesylate 0.25 mg PO BID #0 08/01/17 [Rx] Benztropine [Cogentin] 0.25 mg PO BID #0 08/01/17 [Rx] Glimepiride [Amaryl] 2 mg PO DAILY #0 08/01/17 [Rx] Losartan [Cozaar] 25 mg PO DAILY #0 08/01/17 [Rx] Potassium Chloride [K-Tab ER] 20 meq PO QAM 7 Days #0 08/01/17 [Rx] clonazePAM [Klonopin] 0.5 mg PO HS #0 08/01/17 [Rx] Allergies/Adverse Reactions: 3 Allergy/AdvReac Type Severity Reaction Status Date / Time Penicillins Allergy Unknown Unresponsiv Verified 07/28/17 06:42 e bee venom protein (honey bee) Allergy See Verified 07/27/17 21:51 Comments hydroxyzine Allergy See Verified 07/27/17 21:51 Comments meperidine Allergy See Verified 07/27/17 21:51 Comments propoxyphene Allergy See Verified 07/27/17 21:51 Comments ziprasidone Allergy See Verified 07/27/17 21:51 Comments - Respiratory Orders Smoking Cessation: Smoking cessation has been advised. For more information, call the [place] Tobacco Quit Line at 9-179-PFKO-NOW. - Lab Orders Lab Orders: Other (include drug levels w/frequency) (CBC with differential, BMP in 1 week) - Rehabiliation Orders Rehab Potential: Fair - Diet Orders Regular CERTIFICATION: I certify that the transfer of the above named patient to an Extended Care Facility is necessary for the continuing treatment of the diagnosis listed. The above information is true and accurate reflection of patient's current condition. Confidential - Redisclosure prohibited without a patient's written consent.
[2017-08-01] MEDS ORDERED: Azithromycin 250 MG TABLET PO SCH (16:00)
== END 2017-08-01 14:39 | DRG 683 ==
LOC: INPPIK 21:16 → EMEROOPIK 21:16 → INPPIK 07-28 00:37
PROVIDERS: ADMIT Internal Medicine; ATTEND Internal Medicine